=== PATIENT | male | born 1970 | race Caucasian/White ===

== ENCOUNTER 2016-06-20 01:09 | Inpatient (IN) | payer OTHER ==
[2016-06-20] MEDS ORDERED: NO HOME MEDICATION (01:44)
[2016-06-21 06:18] LABS: EOS % 0.1 % (0-7); HCT-HEMATOCRIT 40.9 % (36.0-53.5); HGB-HEMOGLOBIN 13.3 gm/dl (13.5-17.0); IMMATURE GRANULOCYTES ABSOLUTE 0.02 tho/cmm (0-0.03); IMMATURE GRANULOCYTES PERCENT 0.3 % (0-0.3); LYMPH % 17.9 % (20-45); LYMPH ABSOLUTE COUNT 1.4 tho/cmm (0.8-4.5); MCH (MEAN CORPUSCULAR HGB) 28.9 pg (28.0-32.0); MCHC MEAN CORPUSCULAR HGB CONC 32.5 % (32.0-36.0); MCV (MEAN CELL VOLUME) 88.9 fl (82.0-96.0); MEAN PLATELET VOLUME 10.3 cmc (9.4-12.4); MONO % 9.8 % (0-12); MONOCYTE ABSOLUTE COUNT 0.8 tho/cmm (0.0-1.2); NEUTROPHIL ABSOLUTE COUNT 5.8 tho/cmm (1.6-8.0); NEUTROPHIL-AUTOMATED 5.8 tho/cmm (1.6-8.0); NEUTROPHILS % 71.9 % (40-80); PLATELET COUNT 122 tho/cmm (150-450)
--- NOTE | 2016-06-21 14:00 | NUR ---
virtual care note: checked in on patient. on intravenous antibiotics, has NATHAN drain. recovering from appy surgery. doing well, no current needs. alert/oriented. electronic chart reviewed. has had family in and out of his room visiting all shift. will continue to monitor.
--- NOTE | 2016-06-22 21:10 | NUR ---
VN/[facility]-PATIENT JUST GOT BACK FROM A WALK AND HAS COMPANY AT HIS BEDSIDE. HE EXPRESSED CONCERNS ABOUT WHAT THE DOCTOR HAD SAID ABOUT A 25% CHANCE OF GETTING AN ABSCESS FROM THE [facility] SO WANTS TO KNOW HOW HE WILL KNOW IF HE GETS ONE. EXPLAINED THAT IF HIS VITALS SIGNS,LABS OR HAS OTHER SYMPTOMS THAT INDICATE A CONCERN THE DOCTOR WILL ORDER A TEST TO FIND OUT. HE ALSO MENTIONED THE PA HAD SAID THE DOCTOR WOULD BE COMING BY TO SEE HIM BUT HE HAS NOT SEEN HIM YET AND HIS DRESSINGS WERE TO BE REMOVED BUT THEY ARE STILL ON. HE DID SAY HE HAD A LITTLE SQUIRT OF A BM SO HAPPY ABOUT THAT BUT STATES HIS PAIN STAYS ABOUT THE SAME. HE STATES HE IS GETTING WONDERFUL CARE AND HAS NO OTHER QUESTIONS OR CONCERNS AT THIS TIME
[2016-06-24 04:57] LABS: BASO % 0.1 % (0-2); EOS % 1.9 % (0-7); EOSINOPHIL ABSOLUTE COUNT 0.2 tho/cmm (0.0-0.7); HCT-HEMATOCRIT 42.9 % (36.0-53.5); HGB-HEMOGLOBIN 14.4 gm/dl (13.5-17.0); IMMATURE GRANULOCYTES ABSOLUTE 0.04 tho/cmm (0-0.03); IMMATURE GRANULOCYTES PERCENT 0.4 % (0-0.3); LYMPH % 15.3 % (20-45); LYMPH ABSOLUTE COUNT 1.4 tho/cmm (0.8-4.5); MCH (MEAN CORPUSCULAR HGB) 29.1 pg (28.0-32.0); MCHC MEAN CORPUSCULAR HGB CONC 33.6 % (32.0-36.0); MCV (MEAN CELL VOLUME) 86.8 fl (82.0-96.0); MEAN PLATELET VOLUME 10.4 cmc (9.4-12.4); MONO % 11.6 % (0-12); NEUTROPHIL ABSOLUTE COUNT 6.3 tho/cmm (1.6-8.0); NEUTROPHIL-AUTOMATED 6.3 tho/cmm (1.6-8.0); NEUTROPHILS % 70.7 % (40-80); RED BLOOD COUNT 4.94 mil/cmm (4.40-5.70); RED CELL DISTRIBUTION WIDTH 13.2 % (12.4-16.4); WHITE BLOOD COUNT 8.9 tho/cmm (4.0-10.0)
[2016-06-24 04:59] LABS: PLATELET COUNT 184 tho/cmm (150-450)
[2016-06-24] MEDS ORDERED: NORCO 5-325 TA1 EACH PO (12:57)
[2016-06-24] MEDS ORDERED: IBUPROFEN600 M1 PO (12:58)
[2016-06-24] MEDS ORDERED: AUGMENTIN 875-1 EAC2 PO (13:00)
--- NOTE | 2016-06-24 14:50 | NUR ---
VIRTUAL CARE NOTE: PT RESTING ON CHAIR, OK FOR DISCHARGE TEACHING AT THIS TIME. INFORMATION GIVEN TO PT, ALL QUESTIONS ANSWERED. PT WAITING FOR HIS TO GET OFF FROM WORK TO PICK HIM UP LATER. INFORMED FLOOR NURSE DC TEACHING ALL DONE.
== END 2016-06-24 16:32 | DRG 339 ==
LOC: 5WD 01:09 → ORW 03:48 → PACU 04:29 → 5WD 05:52
PROVIDERS: Physician Assistant; ADMIT Surgery
PROC: 0DTJ4ZZ Resection of Appendix, Percutaneous Endoscopic Approach (ICD-10-PCS; principal; 2016-06-20)
DX: K35.3 Acute appendicitis with localized peritonitis (principal); Z68.41 Body mass index [BMI] 40.0-44.9, adult; K56.7 Ileus, unspecified; E66.9 Obesity, unspecified
CPT/HCPCS: J1335; J1885; J2270; J7030; J7121